=== PATIENT | male | born 1970 | race Caucasian/White ===

== ENCOUNTER 2018-02-09 16:14 | Emergency (ER) | payer BC, SELFPAY ==
[2018-02-09 16:20] VITALS: BP 159/78; PULSE 81; RESP 12; TEMP 36.7; O2SAT 95
--- NOTE | 2018-02-09 16:25 | W.ED.GENAD ---
Discharge Plan Disposition Patient Disposition: HOME Condition: Good Discharge Details Chief Complaint: Laceration Clinical Impression: Laceration of hand, right ED Provider: Oj Lynch Discharge Instructions Instructions: Laceration (ED) Additional Instructions: return to the Emergency department in 7 days to have the sutures removed Medical Decision Making 47 yo male with hx of htn, comes in with right hand laceration. Got his hand suck on trailer hitch, denies falling or other trauma, has 3cm laceration at base of right pinky anterirly, intact sensation, cap refill less than 2 seconds and full rom in flexion and extension at all joints so doubt tendon injury. Will close with sutures. No significant pain on palpation to suggest fx/dislocation so do not feel xrays indicated Differential Diagnosis right hand laceration, abrasion HPI General Mode of arrival: ambulatory. Date/Time Provider Initiated Documentation: 02/09/18 16:16. Limitations to Documentation: no limitations. Information obtained by: patient. History of Present Illness 47 year old M presents to the emergency department with the chief complaint of right hand laceration, described as moderate, with intensity rated at 4. Quality is described as aching, and is localized to the right and upper extremity. Patient started experiencing this hour(s) (1) and it has been constant. No relieving factors improve symptom(s), No exacerbating factors reported . Patient notes no other symptoms.. Patient did receive the following treatments prior to arrival, none Related Data Allergies Allergy/AdvReac Type Severity Reaction Status Date / Time No Known Allergies Allergy Unverified 02/09/18 16:23 General Stated Complaint: Laceration VETO: 4 Review of Systems Review of Systems All systems reviewed & are unremarkable except as noted in HPI and below Constitutional Denies chills, Denies fever(s) and Denies weakness Eyes Denies loss of vision ENT Denies change in voice Cardiovascular Denies chest pain and Denies dyspnea Respiratory Denies dyspnea Gastrointestinal Denies abdominal pain, Denies nausea and Denies vomiting Genitourinary Denies dysuria Musculoskeletal Denies joint swelling Integumentary/Breasts Denies rash Neurologic Denies loss of vision and Denies weakness Endocrine Denies cold intolerance and Denies heat intolerance PFSH Social History Smoking/Tobacco Use Status: Never Social History Smoking/Tobacco Use Status: Never Exam Const General: no acute distress Orientation: alert HENMT Head: normal to inspection Ears: external ears normal General nose exam: external nose normal Mouth: moist mucous membranes Eyes General: appearance normal, both eyes and all related structures Neck Neck: normal visual inspection Resp Effort & Inspection: normal respiratory effort and able to speak in complete sentences Cardio Rate: regular rate Skin General skin exam: no rashes or lesions noted Neuro General: alert and oriented x3 Extrem General: normal to inspection Psych Mental Status: mental status grossly normal Course Vital Signs Temperature 36.7 C 02/09/18 16:20 Pulse 81 02/09/18 16:20 Respiratory Rate 12 02/09/18 16:20 Blood Pressure 159/78 H 02/09/18 16:20 Pulse Oximetry 95 02/09/18 16:20 Temperature 36.7 C 02/09/18 16:20 Temperature Source Temporal Artery Scan 02/09/18 16:20 Pulse 81 02/09/18 16:20 Respiratory Rate 12 02/09/18 16:20 Respiratory Effort Non-Labored 02/09/18 16:22 Blood Pressure 159/78 H 02/09/18 16:20 Blood Pressure Position Sitting 02/09/18 16:20 Pulse Oximetry 95 02/09/18 16:20 Oxygen Delivery Method Room Air 02/09/18 16:20 Oxygen Flow Rate 0 02/09/18 16:20 Pain Level 4 02/09/18 16:20 Procedures Laceration Laceration 1: Site: hand Side (If applicable): right Size (cm): 3 Description: linear Depth: simple, single layer Local Anesthetic: Lidocaine 2% Amount of anesthesia used (mL): 6 Pre-repair: wound explored and irrigated extensively Skin layer closed with: vicryl Size (cm): 5-0 Number of sutures: 6 Technique: simple, interrupted
--- NOTE | 2018-02-09 16:33 | ED.GENADUL_ITS ---
Discharge Plan Disposition Patient Disposition: HOME Condition: Good Discharge Details Chief Complaint: Laceration Clinical Impression: Laceration of hand, right ED Provider: Oj Lynch Discharge Instructions Instructions: Laceration (ED) Additional Instructions: return to the Emergency department in 7 days to have the sutures removed Medical Decision Making 47 yo male with hx of htn, comes in with right hand laceration. Got his hand suck on trailer hitch, denies falling or other trauma, has 3cm laceration at base of right pinky anterirly, intact sensation, cap refill less than 2 seconds and full rom in flexion and extension at all joints so doubt tendon injury. Will close with sutures. No significant pain on palpation to suggest fx/ dislocation so do not feel xrays indicated Differential Diagnosis right hand laceration, abrasion HPI General Mode of arrival: ambulatory . Date/Time Provider Initiated Documentation: 02/09/18 16:16 . Limitations to Documentation: no limitations . Information obtained by: patient . History of Present Illness 47 year old M presents to the emergency department with the chief complaint of right hand laceration, described as moderate, with intensity rated at 4. Quality is described as aching, and is localized to the right and upper extremity. Patient started experiencing this hour(s) (1) and it has been constant. No relieving factors improve symptom(s), No exacerbating factors reported . Patient notes no other symptoms.. Patient did receive the following treatments prior to arrival, none Related Data Allergies Allergy/AdvReac Type Severity Reaction Status Date / Time No Known Allergies Allergy Unverified 02/09/18 16:23 General Stated Complaint: Laceration VETO: 4 Review of Systems Review of Systems All systems reviewed & are unremarkable except as noted in HPI and below Constitutional Denies chills, Denies fever(s) and Denies weakness Eyes Denies loss of vision ENT Denies change in voice Cardiovascular Denies chest pain and Denies dyspnea Respiratory Denies dyspnea Gastrointestinal Denies abdominal pain, Denies nausea and Denies vomiting Genitourinary Denies dysuria Musculoskeletal Denies joint swelling Integumentary/Breasts Denies rash Neurologic Denies loss of vision and Denies weakness Endocrine Denies cold intolerance and Denies heat intolerance PFSH Social History Smoking/Tobacco Use Status: Never Social History Smoking/Tobacco Use Status: Never Exam Const General: no acute distress Orientation: alert HENMT Head: normal to inspection Ears: external ears normal General nose exam: external nose normal Mouth: moist mucous membranes Eyes General: appearance normal, both eyes and all related structures Neck Neck: normal visual inspection Resp Effort & Inspection: normal respiratory effort and able to speak in complete sentences Cardio Rate: regular rate Skin General skin exam: no rashes or lesions noted Neuro General: alert and oriented x3 Extrem General: normal to inspection Psych Mental Status: mental status grossly normal Course Vital Signs Temperature 36.7 C 02/09/18 16:20 Pulse 81 02/09/18 16:20 Respiratory Rate 12 02/09/18 16:20 Blood Pressure 159/78 H 02/09/18 16:20 Pulse Oximetry 95 02/09/18 16:20 Temperature 36.7 C 02/09/18 16:20 Temperature Source Temporal Artery Scan 02/09/18 16:20 Pulse 81 02/09/18 16:20 Respiratory Rate 12 02/09/18 16:20 Respiratory Effort Non-Labored 02/09/18 16:22 Blood Pressure 159/78 H 02/09/18 16:20 Blood Pressure Position Sitting 02/09/18 16:20 Pulse Oximetry 95 02/09/18 16:20 Oxygen Delivery Method Room Air 02/09/18 16:20 Oxygen Flow Rate 0 02/09/18 16:20 Pain Level 4 02/09/18 16:20 Procedures Laceration Laceration 1: Site: hand Side (If applicable): right Size (cm): 3 Description: linear Depth: simple, single layer Local Anesthetic: Lidocaine 2% Amount of anesthesia used (mL): 6 Pre-repair: wound explored and irrigated extensively Skin layer closed with: vicryl Size (cm): 5-0 Number of sutures: 6 Technique: simple, interrupted
== END 2018-02-09 17:12 | disposition home or self-care (01) ==
LOC: ER 17:16
PROVIDERS: Emergency Provider Emergency Medicine; PCP Internal Medicine Cardiovascular Disease
DX: S61.216A Laceration without foreign body of right little finger without damage to nail, initial encounter (principal); W22.8XXA Striking against or struck by other objects, initial encounter
CPT/HCPCS: 12002

== ENCOUNTER 2018-02-17 07:45 | Emergency (ER) | payer BC, SELFPAY ==
[2018-02-17 07:49] VITALS: BP 148/73; PULSE 81; RESP 16; TEMP 37; O2SAT 97
--- NOTE | 2018-02-17 07:56 | W.ED.GENAD ---
Discharge Plan Disposition Patient Disposition: HOME Condition: Good Discharge Details Chief Complaint: SutureRem Clinical Impression: Encounter for removal of sutures Primary Care Provider: Kameron Drummond ED Provider: Nkechi Apodaca Home Meds and New Rx's Prescriptions: No Action Bp Medication PO DAILY RF: 0 Discharge Instructions Additional Instructions: Sutures to remain in for another 3 days, come back Friday for suture removal and wound evaluation. please follow wound care previously advised. Medical Decision Making Patient is a 47-year-old [id number] male presenting today with chief complaint suture removal. Patient had #6 sutures placed along a laceration to the flexor surface of the MCP joint of the fifth digit right hand. Wound appears to be healing well with no signs of infection. 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 He has broken through 1 of the sutures. I advised rather that he come back on Friday for reevaluation and possible suture removal at that time. Patient and I again discussed wound care. All his questions and concerns were addressed and he is in agreement this plan HPI General Mode of arrival: ambulatory. Date/Time Provider Initiated Documentation: 02/17/18 07:51. Limitations to Documentation: no limitations. Information obtained by: patient. History of Present Illness 47 year old M presents to the emergency department with the chief complaint of suture removal, described as mild (denies any discomfort at this time), Patient started experiencing this day(s) (7) Patient notes denies fever/chills, rash and weakness. Related Data Home Medications Medication Instructions Recorded Confirmed Bp Medication PO DAILY 02/17/18 Allergies Allergy/AdvReac Type Severity Reaction Status Date / Time No Known Allergies Allergy Unverified 02/17/18 07:51 General Stated Complaint: SutureRem VETO: 5 Review of Systems Constitutional Reports as per HPI, Denies chills and Denies fever(s) Musculoskeletal Reports as per HPI Integumentary/Breasts Reports as per HPI Neurologic Reports as per HPI, Denies sensory deficit and Denies paresthesias PFSH Social History Smoking/Tobacco Use Status: Never Social History Smoking/Tobacco Use Status: Never Exam Const General: cooperative, healthy appearing, comfortable, no acute distress and well developed Nutritional Appearance: average body habitus and well nourished Orientation: alert and awake Resp Effort & Inspection: normal respiratory effort, able to speak in complete sentences and no respiratory distress Cardio Rate: regular rate Rhythm: regular rhythm Skin Trauma: lacerations and/or abrasions noted (laceration is healing well, edges still are slightly gapped. #[address], patient appears to have torn 1. No surrounding erythema, warmth or drainage. Wound is over flexor surface of the MCP joint 5th digit right hand) Neuro General: alert and awake Cognition: normal cognition Speech: speech normal Gait: normal gait Sensory Exam: no sensory deficits noted Psych Appearance: grossly normal and well kempt Mental Status: mental status grossly normal Speech and Movement: speech and movement normal Course Vital Signs Temperature 37 C 02/17/18 07:49 Pulse 81 02/17/18 07:49 Respiratory Rate 16 02/17/18 07:49 Blood Pressure 148/73 H 02/17/18 07:49 Pulse Oximetry 97 02/17/18 07:49 Temperature 37 C 02/17/18 07:49 Temperature Source Skin 02/17/18 07:49 Pulse 81 02/17/18 07:49 Respiratory Rate 16 02/17/18 07:49 Respiratory Effort Non-Labored 02/17/18 07:49 Blood Pressure 148/73 H 02/17/18 07:49 Blood Pressure Position Sitting 02/17/18 07:49 Pulse Oximetry 97 02/17/18 07:49 Oxygen Delivery Method Room Air 02/17/18 07:49 Oxygen Flow Rate 0 02/17/18 07:49 Pain Level 0 02/17/18 07:49
--- NOTE | 2018-02-17 08:03 | ED.GENADUL_ITS ---
Discharge Plan Disposition Patient Disposition: HOME Condition: Good Discharge Details Chief Complaint: SutureRem Clinical Impression: Encounter for removal of sutures Primary Care Provider: Kameron Drummond ED Provider: Nkechi Apodaca Home Meds and New Rx's Prescriptions: No Action Bp Medication PO DAILY RF: 0 Discharge Instructions Additional Instructions: Sutures to remain in for another 3 days, come back Friday for suture removal and wound evaluation. please follow wound care previously advised. Medical Decision Making Patient is a 47-year-old [id number] male presenting today with chief complaint suture removal. Patient had #6 sutures placed along a laceration to the flexor surface of the MCP joint of the fifth digit right hand. Wound appears to be healing well with no signs of infection. 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 He has broken through 1 of the sutures. I advised rather that he come back on Friday for reevaluation and possible suture removal at that time. Patient and I again discussed wound care. All his questions and concerns were addressed and he is in agreement this plan HPI General Mode of arrival: ambulatory . Date/Time Provider Initiated Documentation: 02/17/18 07:51 . Limitations to Documentation: no limitations . Information obtained by: patient . History of Present Illness 47 year old M presents to the emergency department with the chief complaint of suture removal, described as mild (denies any discomfort at this time), Patient started experiencing this day(s) (7) Patient notes denies fever/chills , rash and weakness. Related Data Home Medications Medication Instructions Recorded Confirmed Bp Medication PO DAILY 02/17/18 Allergies Allergy/AdvReac Type Severity Reaction Status Date / Time No Known Allergies Allergy Unverified 02/17/18 07:51 General Stated Complaint: SutureRem VETO: 5 Review of Systems Constitutional Reports as per HPI, Denies chills and Denies fever(s) Musculoskeletal Reports as per HPI Integumentary/Breasts Reports as per HPI Neurologic Reports as per HPI, Denies sensory deficit and Denies paresthesias PFSH Social History Smoking/Tobacco Use Status: Never Social History Smoking/Tobacco Use Status: Never Exam Const General: cooperative, healthy appearing, comfortable, no acute distress and well developed Nutritional Appearance: average body habitus and well nourished Orientation: alert and awake Resp Effort & Inspection: normal respiratory effort, able to speak in complete sentences and no respiratory distress Cardio Rate: regular rate Rhythm: regular rhythm Skin Trauma: lacerations and/or abrasions noted (laceration is healing well, edges still are slightly gapped. #[address], patient appears to have torn 1. No surrounding erythema, warmth or drainage. Wound is over flexor surface of the MCP joint 5th digit right hand) Neuro General: alert and awake Cognition: normal cognition Speech: speech normal Gait: normal gait Sensory Exam: no sensory deficits noted Psych Appearance: grossly normal and well kempt Mental Status: mental status grossly normal Speech and Movement: speech and movement normal Course Vital Signs Temperature 37 C 02/17/18 07:49 Pulse 81 02/17/18 07:49 Respiratory Rate 16 02/17/18 07:49 Blood Pressure 148/73 H 02/17/18 07:49 Pulse Oximetry 97 02/17/18 07:49 Temperature 37 C 02/17/18 07:49 Temperature Source Skin 02/17/18 07:49 Pulse 81 02/17/18 07:49 Respiratory Rate 16 02/17/18 07:49 Respiratory Effort Non-Labored 02/17/18 07:49 Blood Pressure 148/73 H 02/17/18 07:49 Blood Pressure Position Sitting 02/17/18 07:49 Pulse Oximetry 97 02/17/18 07:49 Oxygen Delivery Method Room Air 02/17/18 07:49 Oxygen Flow Rate 0 02/17/18 07:49 Pain Level 0 02/17/18 07:49
== END 2018-02-17 08:03 | disposition home or self-care (01) ==
PROVIDERS: Emergency Provider Physician Assistant; PCP Internal Medicine Cardiovascular Disease
DX: S61.216D Laceration without foreign body of right little finger without damage to nail, subsequent encounter (principal); W22.8XXD Striking against or struck by other objects, subsequent encounter; Z48.02 Encounter for removal of sutures

== ENCOUNTER 2018-02-23 07:46 | Emergency (ER) | payer BC, SELFPAY ==
[2018-02-23 08:29] VITALS: BP 131/81; PULSE 80; RESP 18; TEMP 36.7; O2SAT 96
--- NOTE | 2018-02-23 08:38 | W.ED.GENAD ---
Discharge Plan Discharge Details Chief Complaint: SutureRem Primary Care Provider: Kameron Drummond ED Provider: Oj Mensah Home Meds and New Rx's Prescriptions: No Action Bp Medication PO DAILY RF: 0 Medical Decision Making I removed seven sutures without incident. Neurovascular exam is normal and he has full ROM. Advised to keep clean and dry. Return if symptoms of infection develop. HPI General Date/Time Provider Initiated Documentation: 02/23/18 08:30. Limitations to Documentation: no limitations. Information obtained by: patient. History of Present Illness 47 year old M presents to the emergency department with the chief complaint of suture removal, HPI Narrative: 47 y/o here for suture removal. He had seven simple sutures placed to volar side of right pinky finger 14 days ago. Denies any complications. Related Data Home Medications Medication Instructions Recorded Confirmed Bp Medication PO DAILY 02/17/18 Allergies Allergy/AdvReac Type Severity Reaction Status Date / Time No Known Allergies Allergy Unverified 02/17/18 07:51 General Stated Complaint: SutureRem VETO: 5 Review of Systems Constitutional Reports system reviewed and no additional complaints, except as docu Integumentary/Breasts Comments: suture removal [facility] Social History Smoking/Tobacco Use Status: Never Exam Skin General skin exam: no rashes or lesions noted Extrem Right upper extremity: full ROM, normal capillary refill and hand Details: abnormal to inspection (linear gaping healing laceration to volar side of pinky finger. No redness or drainage. Edges have gaped open and wound is dry with healing tissue noted. Sutures are displaced to one side of the wound but are intact. ), normal capillary refill, neuromotor exam normal, neurosensory exam normal, tendon exam normal and normal ROM of fingers; no tenderness Course Vital Signs Temperature 36.7 C 02/23/18 08:29 Pulse 80 02/23/18 08:29 Respiratory Rate 18 02/23/18 08:29 Blood Pressure 131/81 02/23/18 08:29 Pulse Oximetry 96 02/23/18 08:29 Temperature 36.7 C 02/23/18 08:29 Temperature Source Skin 02/23/18 08:29 Pulse 80 02/23/18 08:29 Respiratory Rate 18 02/23/18 08:29 Blood Pressure 131/81 12/17/18 08:29 Pulse Oximetry 96 02/23/18 08:29 Oxygen Delivery Method Room Air 02/23/18 08:29 Oxygen Flow Rate 0 02/23/18 08:29 Pain Level 0 02/23/18 08:29
--- NOTE | 2018-02-23 08:44 | ED.GENADUL_ITS ---
Discharge Plan Discharge Details Chief Complaint: SutureRem Primary Care Provider: Kameron Drummond ED Provider: Oj Mensah Home Meds and New Rx's Prescriptions: No Action Bp Medication PO DAILY RF: 0 Medical Decision Making I removed seven sutures without incident. Neurovascular exam is normal and he has full ROM. Advised to keep clean and dry. Return if symptoms of infection develop. HPI General Date/Time Provider Initiated Documentation: 02/23/18 08:30 . Limitations to Documentation: no limitations . Information obtained by: patient . History of Present Illness 47 year old M presents to the emergency department with the chief complaint of suture removal, HPI Narrative: 47 y/o here for suture removal. He had seven simple sutures placed to volar side of right pinky finger 14 days ago. Denies any complications. Related Data Home Medications Medication Instructions Recorded Confirmed Bp Medication PO DAILY 02/17/18 Allergies Allergy/AdvReac Type Severity Reaction Status Date / Time No Known Allergies Allergy Unverified 02/17/18 07:51 General Stated Complaint: SutureRem VETO: 5 Review of Systems Constitutional Reports system reviewed and no additional complaints, except as docu Integumentary/Breasts Comments: suture removal [facility] Social History Smoking/Tobacco Use Status: Never Exam Skin General skin exam: no rashes or lesions noted Extrem Right upper extremity: full ROM, normal capillary refill and hand Details: abnormal to inspection (linear gaping healing laceration to volar side of pinky finger. No redness or drainage. Edges have gaped open and wound is dry with healing tissue noted. Sutures are displaced to one side of the wound but are intact. ), normal capillary refill, neuromotor exam normal, neurosensory exam normal, tendon exam normal and normal ROM of fingers; no tenderness Course Vital Signs Temperature 36.7 C 02/23/18 08:29 Pulse 80 02/23/18 08:29 Respiratory Rate 18 02/23/18 08:29 Blood Pressure 131/81 02/23/18 08:29 Pulse Oximetry 96 02/23/18 08:29 Temperature 36.7 C 02/23/18 08:29 Temperature Source Skin 02/23/18 08:29 Pulse 80 02/23/18 08:29 Respiratory Rate 18 02/23/18 08:29 Blood Pressure 131/81 12/17/18 08:29 Pulse Oximetry 96 02/23/18 08:29 Oxygen Delivery Method Room Air 02/23/18 08:29 Oxygen Flow Rate 0 02/23/18 08:29 Pain Level 0 02/23/18 08:29
== END 2018-02-23 08:38 ==
PROVIDERS: Emergency Provider Nurse Practitioner Family; PCP Internal Medicine Cardiovascular Disease
DX: S61.216D Laceration without foreign body of right little finger without damage to nail, subsequent encounter (principal); W22.8XXD Striking against or struck by other objects, subsequent encounter; Z48.02 Encounter for removal of sutures

== ENCOUNTER 2021-02-19 01:05 | Outpatient (CLI) | payer BC, SELFPAY ==
--- NOTE | 2021-02-19 08:15 | DI.NM_ITS ---
APPROVED REPORT Exam: Pharmacologic paired w/ low level exerise Patient Location: Out-Patient Room/Bed: Stress Nurse: Clementina Canela RN Ordering Provider:MEGAN BLAIR MD Contact Number: [phone] BMI: 33.24 Baseline Rhythm: Atrial Fibrillation, Tachycardic, , Poor R-wave progression Comment: slight ST depression noted in inferior leads Indications: CARDIOMYOPATHY. Medical History Medical History: Endocarditis, Mitral valve regurgitation, AFIB, Bilateral pleural effusions, Heart m urmur, Impaired fasting glucose, elevated BP without diagnosis of HTN, EF 15-20%, Hx of tobacco abuse Cardiac Medications: Atorvastatin, Eliquis, Furosemide, Jardiance, Lisinopril, Metoprolol succinate Allergies: No known drug allergies Cardiac Risk Factors: HTN, Hyperlipidemia, Smoking (former) Previous Cardiac Procedures: None Pretest Chest Pain Characteristics: Dyspnea Exercise History: Sedentary Physical Disabilities: None Lung Sounds: Clear to auscultation Heart Sounds: Irregular Stress Test Details Test: Pharmacologic stress was paired with low level exercise. Reason for pharmacologic stress test: EF 15-20%. Nuclear Acquisition: Rest Tc-99m/Stress Tc-99m 1 day Rest Isotope: Tc-99m Sestamibi. Dose: 11.5 Date: 02/19/2021 Injection Time: 0930 Stress Isotope: Tc-99m Sestamibi. Dose: 37.5 Date: 02/19/2021 Injection Time: 1110 HR Resting HR Supine: 102 bpm Max Heart Rate (APMHR): 169.647890 bpm Resting HR Standin bpm Target HR (85% APMHR): 143.653649 bpm Max HR Achieved: 162 bpm % of APMHR: 95.86 Recovery HR: 107 bpm BP Resting BP Supine: 112/80 mmHg Resting BP Standin/80 mmHg Max BP: 134/78 mmHg Recovery BP: 118/76 mmHg BP response to stress: Normal blood pressure response to stress. ECG Resting ECG: Atrial Fibrillation, Tachycardic, , Poor R-wave progression Ectopy: PVCs Comment: slight ST depression noted in inferior leads Stress ECG: Atrial Fibrillation ST Change: No significant ST segment changes noted Arrhythmia: PVCs Recovery ECG: Atrial Fibrillation Recovery ST Change: No significant ST segment changes noted Recovery Arrhythmia: PVCs Clinical Stress Symptoms: None Rate Pressure Product: [id number] Stress ECG Conclusion 1. There is a pharmacological stress test. The patient was in atrial fibrillation for the entirety o f the recording. 2. The EKG portion of this exam is nondiagnostic. Stress Test Summary STAGE HR BP Symptoms NOTES Supine 102 112/80 1 min post Lexiscan injection 148 134/78 3 min post Lexiscan injection 122 124/78 6 min post Lexiscan injection 117 118/76 Standing 113 122/80 Paient received lexiscan injection while walking on treadmill at 1.0mph/0% grade. No symptoms observe d or reported related to lexiscan injection. Baseline dyspnea present. MPI Conclusion There is a poor quality study due to persistent atrial fibrillation with RVR. There is a small mostly reversible perfusion defect at the apex. Patient's ejection fraction was 11% with stress with diffuse hypokinesis and dilatation of the ventri kari. This represents an abnormal SPECT stress test. Radiologist Interpretation Radiologist Interpretation by: Shawn Espinal MD Interpretation Date/Time: 02/20/2021 16:19:03
[2021-02-19] MEDS: Regadenoson 0.4 MG/5 ML SYR IVP (10:53)
== END 2021-02-19 01:25 ==
PROVIDERS: PCP Internal Medicine Cardiovascular Disease; Visit Provider Internal Medicine Interventional Cardiology
DX: I42.9 Cardiomyopathy, unspecified (principal); I10 Essential (primary) hypertension; E78.5 Hyperlipidemia, unspecified; Z87.891 Personal history of nicotine dependence; I49.3 Ventricular premature depolarization; I48.91 Unspecified atrial fibrillation; R94.39 Abnormal result of other cardiovascular function study
CPT/HCPCS: 78452; 93017; J2785